=== PATIENT | male | born 1990 | race Caucasian/White ===

== ENCOUNTER 2018-09-19 14:13 | Emergency (ER) | payer MEDICAID ==
--- NOTE | 2018-09-19 15:00 | ED Physician Chart ---
ED Chief Complaint/HPI - Patient Information Date Seen:: 09/19/18 Time Seen:: 14:25 Chief Complaint:: Left Knee Pain History of Present Illness:: onset x 3 days of intermittent, dull, MS type left knee pain; pt tried no pain medications; pt denies trauma, LOC, ALOC, AMS, decreased activity, visual or gait changes, H/As, weakness, dizziness, paresthesias, vertigo, neck pain, C/P, SOB, Abd. Pain, or urinary s/s Allergies:: Allergies Allergy/AdvReac Type Severity Reaction Status Date / Time No Known Allergies Allergy Verified 09/19/18 14:23 Vitals:: Vital Signs - 8 hr 09/19/18 14:27 Temp 97.6 F HR 78 RR 18 BP 133/93 O2 Sat % 98 Historian:: Patient Review:: Nurse's Note Reviewed, Old Chart Reviewed ED Review of Systems - Review of Systems General/Constitutional: No fever, No chills, No weight loss, No weakness, No diaphoresis, No edema, No loss of appetite Skin: No skin lesions, No rash, No bruising Head: No headache, No light-headedness Eyes: No loss of vision, No pain, No diplopia ENT: No earache, No nasal drainage, No sore throat, No tinnitus Neck: No neck pain, No swelling, No thyromegaly, No stiffness, No mass noted Cardio Vascular: No chest pain, No palpitations, No PND, No orthopnea, No edema Pulmonary: No SOB, No cough, No sputum, No wheezing GI: No nausea, No vomiting, No diarrhea, No pain, No melena, No hematochezia, No constipation, No hematemesis G/U: No dysuria, No frequency, No hematuria, No nacturia Musculoskeletal: No bone or joint pain, No back pain, No muscle pain Endocrine: No polyuria, No polydipsia Psychiatric: No prior psych history, No depression, No anxiety, No suicidal ideation, No homicidal ideation, No auditory hallucination, No visual hallucination Hematopoietic: No bruising, No lymphadenopathy Allergic/Immuno: No urticaria, No angioedema Neurological: No syncope, No focal symptoms, No weakness, No paresthesia, No headache, No seizure, No dizziness, No confusion, No vertigo ED Past Medical History - Past Medical History Obtainable: Yes Past Medical History: No significant medical hx Family History: None Social History: Non Smoker, No Alcohol, No Drug Use, Single, Employed Surgical History: other (Left Knee Arthroscopic Surgery) Psychiatricy History: None Medication: Reviewed Family Medical History - Family Member Mother History Unknown: Yes ED Physical Exam - Physical Examination General/Constitutional: Awake, Well-developed, well-nourished, Alert, No distress, GCS 15, Non-toxic appearing, Ambulatory Head: Atraumatic Eyes: Lids, conjuctiva normal, PERRL, EOMI Skin: Nl inspection, No rash, No skin lesions, No ecchymosis, Well hydrated, No lymphadenopathy ENMT: External ears, nose nl, TM canals nl, Nasal exam nl, Lips, teeth, gums nl , Oropharynx nl, Tonsils nl Neck: Nontender, Full ROM w/o pain, No JVD, No nuchal rigidity, No bruit, No mass, No stridor Other Neck comments:: supple; no meningeal signs; no cervical tenderness; no bruits Respiratory: Nl effort/Exclusion, Clear to Auscultation, No Wheeze/Rhonchi/Rales Cardio Vascular: RRR, No murmur, gallop, rubs, NL S1 S2, Carotid/Femoral/Distal pulses equal bilaterally GI: No tenderness/rebounding/guarding, No organomegaly, No hernia, Normal BS's, Nondistended, No mass/bruits, No McBurney tenderness, Rectum exam nl Other GI comments:: no pulsatile masses : No CVA tenderness Extremities: No tenderness or effusion, Full ROM, normal strength in all extremities, No edema, Normal digits & nails Other Extremities comments:: + Left Knee Tenderness upon all PROMs; no loss of ROMs; full active ROMs; no ligament instability; DTRs: 2+ Bilaterally; Gait: WNL; no FBs; no cellulitis; no wounds; no wounds; no septic joints; good motor, tendon, and sensory functions; good NV functions Neuro/Psych: Alert/oriented, DTR's symmetric, Normal sensory exam, Normal motor strength, Judgement/insight normal, Mood normal, Normal gait, No focal deficits Other Neuro/Psych comments:: no focal signs Misc: Normal back, No paraspinal tenderness ED Labs/Radiology/EKG Results - Radiology Results Comments:: X-Rays: deferred by pt ED Assessment - Procedures Procedures:: JUSTIN Wraps to Left Knee; Crutches Informed Consent: Procedure/risk/benefits explained by MD: Yes Post Procedure/Splint Exam: No Active Bleeding, Full Range of Motion, Neuro/ Vascular Exam Comments:: good NV functions ED Septic Shock - . Is Septic Shock (SBP<90, OR Lactate>4 mmol\L) present?: No - <6hrs of presentation: Vital Signs: Vital Signs - 8 hr 09/19/18 14:27 Temp 97.6 F HR 78 RR 18 BP 133/93 O2 Sat % 98 ED Reassessment (Disposition) - Reassessment Reassessment:: pt is asymptomatic upon discharge Reassessment Condition:: Improved - Diagnosis Diagnosis:: Left Knee Pain; Old Left Knee Injury; Left Knee Sprains and Strains; Hypertension - Aftercare/Follow up Instructions Aftercare/Follow-Up Instructions:: Counseled pt regarding lab results/diagnosis & need follow up, Refer to Discharge Instructions, Counseled pt & family regarding lab results/diagnosis & need follow up Medication Prescribed:: Rx: Motrin 400mg po tid prn pain; Ice/Heat to affected areas; Wear JUSTIN Wrap to Left Knee; Use Crutches; take medication as prescribed - Patient Disposition Discharge/Transfer:: Home Condition at Disposition:: Stable, Improved (RTER prn if existing s/s reoccur and/or get worse and/or any other new s/s occur; ACIs given for all above Dx; Refer to Orthopedist/Educational Technology Specialist [facility]; Have Blood Pressure re-checked in one day by PMD; F/U with PMD in one day or prn; RTER prn if concerned)
== END 2018-09-19 15:02 | disposition home or self-care (01) ==
LOC: ER 14:13
DX: S83.92XA Sprain of unspecified site of left knee, initial encounter (principal); S86.912A Strain of unspecified muscle(s) and tendon(s) at lower leg level, left leg, initial encounter; I10 Essential (primary) hypertension; X58.XXXA Exposure to other specified factors, initial encounter; Y93.89 Activity, other specified; Y92.89 Other specified places as the place of occurrence of the external cause; Y99.8 Other external cause status

== ENCOUNTER 2018-09-25 19:05 | Emergency (ER) | payer MEDICAID ==
--- NOTE | 2018-09-25 20:01 | ED Physician Chart ---
ED Chief Complaint/HPI - Patient Information Date Seen:: 09/25/18 Time Seen:: 20:00 Chief Complaint:: Left knee pain History of Present Illness:: 28 yo male with history of left knee surgery 3 years ago due to ACL and meniscus tear, developed left knee pain for 2 weeks. Pt came to ER 6 days ago and was prescribed with a pair of crutches and Motrin which relieved swelling. Today, pt took 2 tablets of [place] 5/325 mg of someone else 7-8 hours ago. Pt slept soundly in the ER. Allergies:: Allergies Allergy/AdvReac Type Severity Reaction Status Date / Time No Known Allergies Allergy Verified 09/19/18 14:23 Vitals:: Vital Signs - 8 hr 09/25/18 19:20 Temp 98.2 F HR 99 RR 19 BP 131/51 O2 Sat % 95 ED Review of Systems - Review of Systems General/Constitutional: No fever, No chills Skin: No bruising Head: No headache Eyes: No pain ENT: No nasal drainage Neck: No neck pain Cardio Vascular: No chest pain Pulmonary: No SOB GI: No nausea, No vomiting Musculoskeletal: Bone or joint pain Psychiatric: No prior psych history Neurological: No focal symptoms ED Past Medical History - Past Medical History Past Medical History: HTN Social History: Smoker, Alcohol, Illicit Drug Use (marijuana) Surgical History: other (Left knee surgery) Family Medical History - Family Member Mother History Unknown: Yes ED Physical Exam - Physical Examination General/Constitutional: Awake, Alert Head: Atraumatic Eyes: PERRL Skin: No ecchymosis ENMT: Nasal exam nl Neck: No nuchal rigidity Respiratory: No Wheeze/Rhonchi/Rales Cardio Vascular: RRR, No murmur, gallop, rubs, NL S1 S2 GI: No tenderness/rebounding/guarding Other Extremities comments:: Left knee medial side slight swelling and tenderness Neuro/Psych: No focal deficits ED Labs/Radiology/EKG Results - Radiology Results Results: Left knee X ray: mild to moderate degenerative changes ED Assessment - Assessment General Assessment: Left knee pain, s/p left knee surgery due to ACL and mesnicus tear Overweight Assessment/Comments:: Left knee X ray Tylenol 800 mg PO x 1 ED Septic Shock - . Is Septic Shock (SBP<90, OR Lactate>4 mmol\L) present?: No - <6hrs of presentation: Vital Signs: Vital Signs - 8 hr 09/25/18 19:20 Temp 98.2 F HR 99 RR 19 BP 131/51 O2 Sat % 95 ED Reassessment (Disposition) - Reassessment Reassessment Condition:: Improved - Aftercare/Follow up Instructions Notes:: D/c home F/u PCP F/u physical therapy - Patient Disposition Discharge/Transfer:: Home
--- NOTE | 2018-09-26 09:06 | Diagnostic Imaging Report ---
Left knee 3 views Indication: pain Comparison: none Findings: There is evidence of prior ACL repair. Nonspecific calcification is seen adjacent the proximal medial tibial metaphyseal region probably sequela of old surgery. Mild to moderate degenerate changes are seen with marginal osteophytic spurs. No evidence of an acute fracture or joint effusion. No focal soft tissue swelling. Impression: No evidence of an acute fracture. Mild to moderate degenerative changes Postsurgical changes with evidence of prior ACL repair. In the setting of trauma, if clinical symptoms persist and there is continued concern for an occult fracture, follow up exams in 5-7 days is suggested.
== END 2018-09-25 20:20 | disposition home or self-care (01) ==
LOC: ER 19:05
DX: M25.562 Pain in left knee (principal); M25.462 Effusion, left knee; I10 Essential (primary) hypertension; F17.200 Nicotine dependence, unspecified, uncomplicated; Z98.890 Other specified postprocedural states
CPT/HCPCS: 73562-TC-LT; Z7502